=== PATIENT | male | born 1985 | race Two or more races ===

== ENCOUNTER 2023-12-07 06:31 | Day surgery (SDC) | payer OTHER ==
[2023-12-03 11:01] LABS: HEMOGLOBIN 14.2 g/dL (13-16.00); MEAN CELL VOLUME 92.3 fL (80.0-100.00); MEAN CORPUSCULAR HEMOGLOBIN 31.2 pg (27.00-32.0); MEAN CORPUSCULAR HGB CONC 33.8 g/dl (32.0-36.0); PLATELET COUNT 342 K/uL (150-450); RED BLOOD COUNT 4.55 M/uL (4.00-6.00); RED CELL DISTRIBUTION WIDTH 14.2 % (11.5-14.5)
[2023-12-03 11:16] LABS: URINE APPEARANCE Clear; URINE BILIRRUBIN Negative (NEGATIVE); URINE BLOOD Large; URINE COLOR Yellow; URINE GLUCOSE Negative (NEGATIVE); URINE LEUKOCYTE Negative; URINE NITRATE Negative; URINE PROTEIN Negative (NEGATIVE); URINE UROBILINOGEN 0.2 E.U./dl
[2023-12-03 11:17] LABS: INR 0.95; PARTIAL THROMBOPLASTIN TIME 29.1 SECONDS (22.0-34.0)
[2023-12-03 11:21] LABS: URINE BACTERIA 12.5 uL (0.0-1933); URINE EPITHELIAL CELLS 2.1 uL (0.0-38.8); URINE RBC 397.1 uL (0.0-20.8); URINE WBC 24.5 uL (0.0-23.2)
[2023-12-03 11:23] LABS: CALCIUM 9.7 mg/dL (8.5-10.1); CREATININE SERUM 1.11 mg/dL (0.70-1.30); GFR 74.14; POTASSIUM 4.43 mEq/L (3.5-5.1)
[~2023-12-07] VITALS: Ht 175.3 cm; Wt 77.1 kg
[~2023-12-07 06:31] MED LIST: ADVAIR 100-501 EACH IH
[2023-12-07] MEDS ORDERED: TAMSULOSIN HCL 0.4 MG CAP PO ONE ×2 (10:30→13:05)
[2023-12-07] MEDS ORDERED: PHENAZOPYRIDINE HCL 100 MG TABLET PO ONE ×2 (10:30→13:08)
[2023-12-07] MEDS ORDERED: KETOROLAC TROMETHAMINE 30 MG VIAL IV ONE (10:30)
[2023-12-07] MEDS ORDERED: GENTAMICIN SULFATE 40 MG/ML VIAL ONE (10:46)
[2023-12-07] MEDS ORDERED: GENTAMICIN SULFATE 40 MG/ML VIAL IV ONE (11:30)
[2023-12-07] MEDS ORDERED: KETOROLAC TROMETHAMINE 30 MG VIAL ONE (13:05)
== END 2023-12-07 14:45 | disposition home or self-care (01) ==
LOC: CIR.AMB 06:31
PROVIDERS: ATTEND Urology
DX: N20.1 Calculus of ureter (principal); Z91.013 Allergy to seafood; Z20.822 Contact with and (suspected) exposure to COVID-19

== ENCOUNTER 2023-12-14 14:42 | Outpatient (CLI) | payer OTHER | END 2023-12-14 14:56 | disposition home or self-care (01) | LOC: RAD 14:42 | PROVIDERS: ATTEND Urology | DX: N20.0 Calculus of kidney (principal) ==